=== PATIENT | male | born 1955 | race Caucasian/White ===

== ENCOUNTER 2017-05-04 06:21 | Day surgery (SDC) | payer BC ==
[~2017-05-04 06:21] MED LIST: Lactated Ringers 1,000 ML IV SCH; cefOXitin 2 GM in Premix Bag 1 BAG IV ONE
--- NOTE | 2017-05-04 07:11 | PCM.PREANE ---
Preanesthetic Assessment - Anesthesia/Transfusion/Family Hx Anesthesia History: Prior Anesthesia Without Reaction Family History of Anesthesia Reaction: No Transfusion History: No Prior Transfusion(s) - Review of Systems General: No Symptoms Pulmonary: No Symptoms Cardiovascular: No Symptoms Gastrointestinal: No symptoms Neurological: No Symptoms Other: Reports: None - Physical Assessment NPO Status Date: 05/03/17 Height: 1.7 m Weight: 71.214 kg ASA Class: 2 Mental Status: Alert & Oriented x3 Airway Class: Mallampati = 2 Dentition: Reports: Normal Dentition ROM/Head Extension: Full Lungs: Clear to auscultation, Normal respiratory effort Cardiovascular: Regular Rate, Regular Rhythm - Allergies Allergies/Adverse Reactions: Allergies Allergy/AdvReac Type Severity Reaction Status Date / Time No Known Allergies Allergy Verified 05/02/17 12:21 - Anesthesia Plan Pre-Op Medication Ordered: Other (scop) - Acknowledgements Anesthesia Type Planned: General Anesthesia Pt an Appropriate Candidate for the Planned Anesthesia: Yes Alternatives and Risks of Anesthesia Discussed w Pt/Guardian: Yes Pt/Guardian Understands and Agrees with Anesthesia Plan: Yes Additional Comments: does not have asthma, has [place] non compliant with CPAP, other PMH htn and hld PreAnesthesia Questionnaire HEENT History: Reports: Other (See Below) Other HEENT History: wears glasses Cardiovascular History: Reports: Hypertension Respiratory History: Reports: Asthma, Sleep Apnea Other Respiratory History: uses CPAP Gastrointestinal History: Reports: GERD - Past Surgical History Head Surgeries/Procedures: Reports: None GI Surgical History: Reports: Colonoscopy, EGD, Hernia, Inguinal - SUBSTANCE USE Smoking Status *Q: Never Smoker Recreational Drug Use History: No - HOME MEDS Home Medications: Home Meds Beclomethasone Dipropionate [Qvar] 2 puff INH ASDIRECTED PRN 05/02/17 [History] Cholecalciferol (Vitamin D3) [Vitamin D3] 1,000 units PO DAILY 05/02/17 [History ] Lisinopril 20 mg PO DAILY 05/02/17 [History] Saw/Vit E/Sod Suzie/Lyc/Beta/Pyg [Prostate Health Caplet] 1 tab PO DAILY 05/02/17 [History] - CURRENT (IN HOUSE) MEDS Current Meds: Current Medications Lactated Ringer's (Ringers, Lactated) 1,000 mls @ 125 mls/hr IV ASDIRECTED BLANKA Discontinued Medications Cefoxitin Sodium 2 gm/ Premix 50 mls @ 100 mls/hr IV ONETIME ONE Stop: 05/04/17 06:29
[2017-05-04] MEDS ORDERED: Midazolam 1 MG/ML 2 ML SDV ONE (07:14)
[2017-05-04] MEDS ORDERED: Lidocaine 2% 5 ML SDV ONE (07:14)
[2017-05-04] MEDS ORDERED: Propofol 200 MG/20 ML SDV ONE (07:14)
[2017-05-04] MEDS ORDERED: fentaNYL 250 MCG/5 ML SDV ONE (07:14)
[2017-05-04] MEDS ORDERED: Ketorolac 30 MG/ML SDV ONE ×2 (07:15→08:40)
[2017-05-04] MEDS ORDERED: Rocuronium 10 MG/ML 10 ML Syringe ONE (07:15)
[2017-05-04] MEDS ORDERED: Ondansetron 4 MG/2 ML SDV ONE (07:15)
[2017-05-04] MEDS ORDERED: Neostigmine Methylsulfate 1 MG/ML 5 ML Syringe ONE (07:15)
[2017-05-04] MEDS ORDERED: Bupivacaine 0.5% 10 ML SDV ONE (07:15)
[2017-05-04] MEDS ORDERED: ceFAZolin 1 GM Vial ONE (07:16)
[2017-05-04] MEDS ORDERED: Scopolamine 1.5 MG Transdermal Patch TRDERM PRN (07:19)
[2017-05-04] MEDS ORDERED: HYDROmorphone 2 MG/ML Syringe ONE (07:24)
[2017-05-04] MEDS ORDERED: ePHEDrine 50 MG/ML SDV ONE (07:59)
[2017-05-04] MEDS ORDERED: fentaNYL 100 MCG/2 ML SDV IVPUSH PRN (08:16)
[2017-05-04] MEDS ORDERED: Ondansetron 4 MG/2 ML SDV IVPUSH PRN (09:06)
[2017-05-04] MEDS ORDERED: Morphine 10 MG/ML Syringe IVPUSH PRN (09:06)
[2017-05-04] MEDS ORDERED: Acetaminophen/HYDROcodone 325-5 MG Tab PO PRN (09:06)
--- NOTE | 2017-05-04 09:09 | PCM.OPNOTE ---
- General Post-Op/Procedure Note Date of Surgery/Procedure: 05/04/17 Operative Procedure(s): Laparoscopic cholecystectomy Pre Op Diagnosis: Symptomatic cholelithiasis Post-Op Diagnosis: Same Anesthesia Technique: General ET tube (ASA II) Primary Surgeon: Farooq Perrin Fluid Replacement, Intraop: 1,700 EBL in mLs: 10 Condition: Good Free Text/Narrative:: Dictation [id number] [facility] [id number]
[2017-05-04] MEDS ORDERED: Lactated Ringers 1,000 ML IV SCH (09:15)
--- NOTE | 2017-05-04 10:15 | PCM.POSTAN ---
POST ANESTHESIA ASSESSMENT - MENTAL STATUS Mental Status: alert, oriented - RESPIRATORY Respiratory Status: respiratory rate WNL, airway patent, O2 saturation stable - CARDIOVASCULAR CV Status: pulse rate WNL, blood pressure stable - GASTROINTESTINAL GI Status: no symptoms - PAIN Pain Score: 0 - POST OP HYDRATION Hydration Status: adequate & stable
--- NOTE | 2017-05-04 11:17 | PCM48HPAN ---
Post Anesthesia Note - EVALUATION WITHIN 48HRS OF ANESTHETIC Vital Signs in Normal Range: Yes Patient Participated in Evaluation: Yes Respiratory Function Stable: Yes Airway Patent: Yes Cardiovascular Function Stable: Yes Hydration Status Stable: Yes Pain Control Satisfactory: Yes Nausea and Vomiting Control Satisfactory: Yes Mental Status Recovered: Yes
--- NOTE | 2017-05-04 11:48 | OR ---
SURGEON: Farooq Perrin M.D. DATE OF PROCEDURE: 05/04/2017 OPERATION PERFORMED: Laparoscopic cholecystectomy. ANESTHESIA: General endotracheal. ASA CLASSIFICATION: II. PREOPERATIVE DIAGNOSIS: Symptomatic cholelithiasis. POSTOPERATIVE DIAGNOSIS: Symptomatic cholelithiasis. ESTIMATED BLOOD LOSS: 10 mL. INTRAOPERATIVE FLUID REPLACEMENT: 1700 mL of crystalloid. DESCRIPTION OF PROCEDURE: The patient was taken to the operating room, placed on the operating table in the supine position. Time-out was called for appropriate identification of the patient and procedure. Thigh-high TEDs and sequential compression boots were placed. Following satisfactory attainment of general endotracheal anesthesia, a Bishop catheter was placed in the patient's urinary bladder. The abdomen was prepped with DuraPrep solution. Sterile drapes were applied. The skin just below the umbilicus was infiltrated with 0.5% Marcaine solution. The skin incision was made and deepened through the subcutaneous tissue obtaining hemostasis with the use of electrocautery. The Veress needle was introduced into the peritoneal cavity. The saline drop test was positive. Carbon dioxide pneumoperitoneum was established with the relief set at 13 cm of water. Once a satisfactory pneumoperitoneum was established, 5 mm camera and port were placed through the infraumbilical incision. Under camera vision, 5 mm midclavicular, 5 mm anterior axillary, and 12 mm subxiphoid incisions were made after infiltration with local anesthesia. Trocars were placed under direct vision. The gallbladder was grasped and cholecystohepatic triangle was dissected free identifying the cystic duct and cystic artery. Critical view of both structures was obtained before hemoclipping these structures and dividing them with the laparoscopic Metzenbaum scissor. The gallbladder was then dissected away from its bed using electrocautery. Care was taken not to spill any bile or gallstones. Once gallbladder was amputated, this was placed in an Endopouch. The right upper quadrant was then inspected and irrigated with 1% Ancef solution. Minimal oozing was coming from the liver bed and it was elected to place Endo Avitene and Surgicel into this rather than trying to cauterize things. Once that was accomplished, and with the gallbladder contained within an Endopouch, the right hemidiaphragm was irrigated with 250 mL of saline containing 20 mL of 0.5% Marcaine solution. That fluid was left in situ. The Endopouch containing gallbladder was removed along with the 12 mm subxiphoid port. Under camera vision, 5 mm midclavicular, and anterior axillary ports were removed and finally, the infraumbilical camera and port were removed. The wounds were inspected for hemostasis and small bleeding sites were electrocoagulated. The subxiphoid and infraumbilical incisions were closed in 2 layers approximating the subcutaneous tissue with 3-0 Polysorb and the skin with subcuticular 4-0 Monocryl. The anterior, axillary, and midclavicular incisions were closed with subcuticular 4-0 Monocryl. All incisions were Steri-Stripped and dressed with sterile Tegaderm pads. Bishop catheter was removed prior to emergence from anesthesia. Following emergence from anesthesia and extubation, the patient was taken to recovery room in stable condition. ISELA COLMENARES /[id number]
[2017-05-04 13:59] VITALS: BP 107/61
== END 2017-05-04 12:20 | disposition home or self-care (01) ==
LOC: MW.SDS 06:21
PROVIDERS: ATTEND Surgery
PROC: 0FT44ZZ Resection of Gallbladder, Percutaneous Endoscopic Approach (ICD-10-PCS; principal; 2017-05-04)
DX: K80.10 Calculus of gallbladder with chronic cholecystitis without obstruction (principal); J45.909 Unspecified asthma, uncomplicated; K21.9 Gastro-esophageal reflux disease without esophagitis; I10 Essential (primary) hypertension; E78.00 Pure hypercholesterolemia, unspecified; G47.33 Obstructive sleep apnea (adult) (pediatric); Z99.89 Dependence on other enabling machines and devices; Z79.899 Other long term (current) drug therapy; Z98.890 Other specified postprocedural states
CPT/HCPCS: 00790; 88304; A9270-GY; J0690; J1170; J1885; J2250; J2405; J2704; J3010; J7120